=== PATIENT | female | born 1995 | race African-American/Black ===

== ENCOUNTER 2020-10-31 19:36 | Emergency (ER) | payer SELFPAY ==
[~2020-10-31] VITALS: Ht 165.1 cm; Wt 141.9 kg
[2020-10-31 19:37] VITALS: BP 145/82
[2020-10-31 20:26] LABS: BASO % 0.3 % (0.0-1.0); EOS # 0.1 10^3/uL (0.0-0.5); EOS % 0.8 % (0.0-3.0); HEMATOCRIT 37.7 % (36.0-47.0); HEMOGLOBIN 11.4 g/dl (12.0-15.5); LYMPH # 2.3 10^3/uL (1.5-5.0); LYMPH % 26.5 % (24.0-44.0); MEAN CORPUSCULAR HEMOGLOBIN 27.9 pg (27.0-33.0); MEAN CORPUSCULAR HGB CONC 30.2 g/dl (32.0-36.5); MEAN CORPUSCULAR VOLUME 92.4 fl (80.0-96.0); MONO # 0.5 10^3/uL (0.0-0.8); MONO % 5.6 % (2.0-8.0); NEUTROPHILS # 5.7 10^3/uL (1.5-8.5); NEUTROPHILS % 66.2 % (36.0-66.0); PLATELET COUNT, AUTOMATED 284 10^3/uL (150-450); RED BLOOD COUNT 4.08 10^6/uL (4.00-5.40); WHITE BLOOD COUNT 8.6 10^3/uL (4.0-10.0)
[2020-10-31 20:58] LABS: BLOOD UREA NITROGEN 6 MG/DL (7-18); CALCIUM LEVEL 9.2 MG/DL (8.5-10.1); CARBON DIOXIDE LEVEL 28 MEQ/L (21-32); CHLORIDE LEVEL 105 MEQ/L (98-107); CREATININE FOR GFR 0.94 MG/DL (0.55-1.30); GLOMERULAR FILTRATION RATE > 60.0 (>60); GLUCOSE, FASTING 95 MG/DL (70-100); HCG, SERUM QUANTITATIVE < 1.0 MIU/ML; SODIUM LEVEL 138 MEQ/L (136-145)
== END 2020-10-31 23:32 | disposition home or self-care (01) ==
LOC: EDBD → M ED 19:36
DX: R10.9 Unspecified abdominal pain (principal)

== ENCOUNTER 2020-11-01 05:30 | Emergency (ER) | payer SELFPAY ==
[2020-11-01 05:42] VITALS: BP 129/91
== END 2020-11-01 05:50 | disposition left against medical advice (07) ==
LOC: EDBD → M ED 05:30
DX: Z53.21 Procedure and treatment not carried out due to patient leaving prior to being seen by health care provider (principal)

== ENCOUNTER 2020-11-01 07:59 | Emergency (ER) | payer SELFPAY ==
[~2020-11-01] VITALS: Ht 160 cm; Wt 140.2 kg
[2020-11-01 08:00] VITALS: BP 141/81
[2020-11-01] MEDS ORDERED: KETOROLAC TROMETHAMINE 10 MG TAB PO ONE (08:50)
[2020-11-02] MEDS ORDERED: ACET-897 PO (07:13)
== END 2020-11-01 09:13 | disposition home or self-care (01) ==
LOC: EDBD → M ED 07:59
DX: R51.9 Headache, unspecified (principal); R42 Dizziness and giddiness; F41.9 Anxiety disorder, unspecified; F33.9 Major depressive disorder, recurrent, unspecified

== ENCOUNTER 2020-11-01 12:17 | Emergency (ER) | payer SELFPAY ==
[~2020-11-01] VITALS: Ht 160 cm; Wt 127.3 kg
[2020-11-01] MEDS ORDERED: ACETAMINOPHEN 500 MG TAB PO ONE (13:40)
[2020-11-01 15:00] LABS: BASO % 0.4 % (0.0-1.0); EOS # 0.1 10^3/uL (0.0-0.5); EOS % 0.7 % (0.0-3.0); HEMATOCRIT 37.2 % (36.0-47.0); HEMOGLOBIN 11.5 g/dl (12.0-15.5); LYMPH # 1.6 10^3/uL (1.5-5.0); LYMPH % 18.4 % (24.0-44.0); MEAN CORPUSCULAR HEMOGLOBIN 28.3 pg (27.0-33.0); MEAN CORPUSCULAR HGB CONC 30.9 g/dl (32.0-36.5); MEAN CORPUSCULAR VOLUME 91.4 fl (80.0-96.0); MONO # 0.5 10^3/uL (0.0-0.8); MONO % 5.5 % (2.0-8.0); NEUTROPHILS # 6.3 10^3/uL (1.5-8.5); NEUTROPHILS % 74.9 % (36.0-66.0); PLATELET COUNT, AUTOMATED 282 10^3/uL (150-450); RED BLOOD COUNT 4.07 10^6/uL (4.00-5.40); WHITE BLOOD COUNT 8.5 10^3/uL (4.0-10.0)
[2020-11-01 15:42] LABS: HCG, SERUM QUALITATIVE NEGATIVE (NEGATIVE)
[2020-11-01 15:48] LABS: ACETAMINOPHEN LEVEL 2.1 UG/ML (10.0-30.0); ALBUMIN 3.4 GM/DL (3.2-5.2); ALT/SGPT 27 U/L (12-78); BILIRUBIN,DIRECT 0.1 MG/DL (0.0-0.2); BILIRUBIN,TOTAL 0.2 MG/DL (0.2-1.0); BLOOD UREA NITROGEN 7 MG/DL (7-18); CALCIUM LEVEL 8.9 MG/DL (8.5-10.1); CARBON DIOXIDE LEVEL 27 MEQ/L (21-32); CHLORIDE LEVEL 108 MEQ/L (98-107); CREATININE FOR GFR 0.96 MG/DL (0.55-1.30); ETHYL ALCOHOL (ETHANOL) < 0.003 % (0.000-0.010); FREE T4 1.03 NG/DL (0.76-1.46); GLOMERULAR FILTRATION RATE > 60.0 (>60); GLUCOSE, FASTING 130 MG/DL (70-100); LIPASE 81 U/L (73-393); SALICYLATE LEVEL < 1.7 MG/DL (5.0-30.0); SODIUM LEVEL 142 MEQ/L (136-145); TOTAL PROTEIN 6.8 GM/DL (6.4-8.2)
[2020-11-01 16:16] VITALS: BP 144/62
[2020-11-02] MEDS ORDERED: ACET-897 PO (07:13)
== END 2020-11-01 18:53 | disposition home or self-care (01) ==
LOC: M ED 12:17 → EDBD 12:17 → M ED 18:53
DX: M25.561 Pain in right knee (principal); M25.562 Pain in left knee; M54.5 Low back pain; F33.9 Major depressive disorder, recurrent, unspecified; F41.9 Anxiety disorder, unspecified

== ENCOUNTER 2020-11-02 06:51 | Emergency (ER) | payer SELFPAY ==
[~2020-11-02] VITALS: Ht 160 cm; Wt 141.5 kg
[2020-11-02 06:51] VITALS: BP 150/68
[2020-11-02] MEDS ORDERED: ACET-897 PO (07:13)
[2020-11-02] MEDS ORDERED: ACETAMINOPHEN 500 MG TAB PO ONE (07:15)
== END 2020-11-02 07:25 | disposition home or self-care (01) ==
LOC: M ED 06:51
DX: R51.9 Headache, unspecified (principal); F41.9 Anxiety disorder, unspecified